=== PATIENT | male | born 1980 | race Caucasian/White ===

== ENCOUNTER 2016-12-17 21:18 | Emergency (ER) | payer MEDICAID ==
[~2016-12-17] VITALS: Ht 172.7 cm; Wt 76.6 kg
[2016-12-17] MEDS ORDERED: ESTRADIOL2 M1 PO ×2 (21:24→21:26)
[2016-12-17] MEDS ORDERED: SPIRONOLACTONE100 MG PO (21:25)
[2016-12-17] MEDS ORDERED: AMOXIL500 M1 PO (21:49)
[2016-12-17 22:10] VITALS: BP 101/71
== END 2016-12-17 22:10 | disposition home or self-care (01) ==
LOC: ED 21:18
DX: H69.93 Unspecified Eustachian tube disorder, bilateral (principal)